=== PATIENT | female | born 1995 ===

== ENCOUNTER 2018-06-23 15:21 | Emergency (ER) | payer OTHER ==
[2018-06-23 15:39] VITALS: BP 120/74; PULSE 88; RESP 18; TEMP 98.3; O2SAT 99
--- NOTE | 2018-06-23 16:22 | ED PDOC ---
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 denies: Nausea, Vomiting, Diarrhea Alleviating Factors: None Additional Complaint(s): 23yo female c/o pelvic cramping, small vaginal bleeding and urinary frequency and dysuria ongoing since this morning. Mild L lower back pain. Denies fever, dizziness, vaginal discharge or syncope. Denies headache, rash or concern for STDs. Past Medical History Reviewed: Historical Data, Nursing Documentation, Vital Signs Vital Signs: Last Vital Signs Temp 98.3 F 06/23/18 15:36 Pulse 88 06/23/18 15:36 Resp 18 06/23/18 15:36 BP 120/74 06/23/18 15:36 Pulse Ox 99 06/23/18 15:36 - Medical History PMH: No Chronic Diseases Other PMH: - Surgical History Surgical History: No Surg Hx - Family History Family History: States: Unknown Family Hx - Social History Current smoker - smoking cessation education provided: No - Home Medications Home Medications: Ambulatory Orders Medication Instructions Recorded Cephalexin [cephalexin] 500 mg PO TID #21 cap 06/23/18 - Allergies Allergies/Adverse Reactions: Allergies Allergy/AdvReac Type Severity Reaction Status Date / Time No Known Allergies Allergy Verified 06/23/18 16:14 Review of Systems Constitutional: Negative for: Fever ENT: Negative for: Throat Pain Cardiovascular: Negative for: Chest Pain Respiratory: Negative for: Shortness of Breath Gastrointestinal: Positive for: Abdominal Pain Genitourinary Female: Positive for: Dysuria, Frequency, Vaginal Bleeding, Pelvic Pain. Negative for: Vaginal Discharge Musculoskeletal: Positive for: Back Pain. Negative for: Neck Pain Skin: Negative for: Rash Neurological: Negative for: Weakness, Numbness Psych: Negative for: Depression Physical Exam - Reviewed Nursing Documentation Reviewed: Yes Vital Signs Reviewed: Yes - Physical Exam Appears: Positive for: Well, Non-toxic, No Acute Distress Head Exam: Positive for: ATRAUMATIC, NORMAL INSPECTION, NORMOCEPHALIC Skin: Positive for: Normal Color, Warm, DRY Eye Exam: Positive for: EOMI, Normal appearance, PERRL ENT: Positive for: Normal ENT Inspection Neck: Positive for: Normal, Painless ROM Cardiovascular/Chest: Positive for: Regular Rate, Rhythm Respiratory: Positive for: CNT, Normal Breath Sounds Gastrointestinal/Abdominal: Positive for: Soft. Negative for: Tenderness, Distended, Guarding, Rebound Back: Positive for: Normal Inspection Extremity: Positive for: Normal ROM Neurologic/Psych: Positive for: Alert, Oriented. Negative for: Motor/Sensory Deficits - Laboratory Results Result Diagrams: 06/23/18 16:40 06/23/18 16:40 - ECG O2 Sat by Pulse Oximetry: 99 Medical Decision Making Medical Decision Making: upreg neg UA ++WBC and leuk est, nitrate WBC 11 chem unremarkable No CVA tenderness given dose rocephin and stable for outpt treatment. followup cultures. 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 Your provider was Rufino Sam III, DO and you were treated for VAGINAL BLEEDING. The emergency medical care you received today was directed at your acute symptoms. If you were prescribed any medication, please fill it and take as directed. It may take several days for your symptoms to resolve. Return to the Emergency Department if your symptoms worsen, do not improve, or if you have any other problems. Please contact your doctor or call one of the physicians/clinics you have been referred to that are listed on the Patient Visit Information form that is included in your discharge packet. Bring any paperwork you were given at discharge with you along with any medications you are taking to your follow up visit. Our treatment cannot replace ongoing medical care by a primary care provider outside of the emergency department. Thank you for allowing the [facility] team to be part of your care today. If you had an X-Ray or CT scan: A Radiologist will review the ED reading if any change in treatment is needed we will contact you. If you had a blood, urine, or wound culture: It will take several days for the results, if any change in treatment is needed we will contact you. If you had an STI test: It will take 48 hours for the results. Please call after 1 week if you have not heard back.Followup cultures, you may need antibiotic changed based on result Prescriptions: Cephalexin [cephalexin] 500 mg PO TID #21 cap Instructions: Urinary Tract Infections in Adults Forms: [facility] (Egyptian) Print Language: NEPALI
[2018-06-23 16:45] LABS: BASO % 0.3 % (0.0-2.0); EOS % 0.4 % (0.0-4.0); HEMOGLOBIN 12.1 g/dL (12.0-16.0); LYMPH # 2.2 K/uL (1.0-4.3); LYMPH % 19.3 % (20.0-40.0); MEAN CELL VOLUME 85.7 fl (81.0-99.0); MEAN CORPUSCULAR HGB CONC 32.6 g/dL (33.0-37.0); MEAN PLATELET VOLUME 7.3 fl (7.2-11.7); MONO # 0.7 K/uL (0.0-0.8); MONO % 6.4 % (0.0-10.0); NEUT # 8.6 K/uL (1.8-7.0); NEUT % 73.6 % (50.0-75.0); RBC 4.32 Mil/uL (3.80-5.20); RED CELL DISTRIBUTION WIDTH 15.6 % (11.5-14.5); WHITE BLOOD COUNT 11.6 K/uL (4.8-10.8)
[2018-06-23 16:55] LABS: ALB/GLOB RATIO 1.4 (1.0-2.1); ALBUMIN 4.5 g/dL (3.5-5.0); ALT/SGPT 19 U/L (9-52); AST/SGOT 25 U/L (14-36); BLOOD UREA NITROGEN 13 mg/dl (7-17); GFR AFRICAN-AMERICAN > 60; GFR NON-AFRICAN AMERICAN > 60
[2018-06-23 17:07] LABS: SQUAMOUS EPITHIAL 14 /hpf (0-5); URINE BACTERIA RARE (<OCC); URINE BILIRUBIN NEGATIVE (NEGATIVE); URINE BLOOD LARGE (NEGATIVE); URINE CLARITY TURBID (Clear); URINE COLOR AMBER (YELLOW); URINE GLUCOSE (UA) NEG (Normal); URINE LEUKOCYTE ESTERASE MOD Leu/uL (Negative); URINE PROTEIN 100 mg/dL (NEGATIVE); URINE UROBILINOGEN 0.2-1.0 mg/dL (0.2-1.0); WBC CLUMPS MANY /hpf
[2018-06-23] MEDS ORDERED: cefTRIAXone (Rocephin) 1 gm Inj ONE (18:06)
== END 2018-06-23 19:49 | disposition home or self-care (01) ==
LOC: H.ER 15:21
DX: N39.0 Urinary tract infection, site not specified (principal)
CPT/HCPCS: 80053; 81003; 81025; 85025; 87086; 87181; 96365; 96375; 99283; J0696; J1885

== ENCOUNTER 2018-07-06 01:25 | Emergency (ER) | payer OTHER ==
[2018-07-06 01:57] VITALS: RESP 16; TEMP 98.3; O2SAT 99
[2018-07-06] MEDS ORDERED: cefTRIAXone (Rocephin) 250 mg Inj IM ONE (04:52)
[2018-07-06] MEDS ORDERED: cefTRIAXone (Rocephin) 250 mg Inj ONE (05:29)
--- NOTE | 2018-07-06 05:39 | ED PDOC ---
HPI: Female Pain Time Seen by Provider: 07/06/18 01:56 Chief Complaint (Nursing): Female Genitourinary Chief Complaint (Provider): Female Genitourinary History Per: Patient History/Exam Limitations: no limitations Onset/Duration Of Symptoms: Days (x1) Additional Complaint(s): Patient is a 23 y/o female with no significant medical history, who presents to the ED complaining of dysuria and hematuria, x1 day ago in the evening. Patient reports that she was experiencing much more frequent need to urinate and noticed blood in her urine. She also reports suprapubic pain. Patient denies any vaginal bleeding, vomiting, or back pain. PMD: None Past Medical History Reviewed: Historical Data, Nursing Documentation, Vital Signs Vital Signs: Last Vital Signs Temp 98.3 F 07/06/18 01:52 Pulse 68 07/06/18 01:52 Resp 16 07/06/18 01:52 BP 122/80 07/06/18 01:52 Pulse Ox 99 07/06/18 01:52 - Medical History PMH: No Chronic Diseases - Surgical History Surgical History: No Surg Hx - Family History Family History: States: Unknown Family Hx - Home Medications Home Medications: Ambulatory Orders Medication Instructions Recorded Cephalexin [cephalexin] 500 mg PO TID #21 cap 06/23/18 Nitrofurantoin Macrocrystals 100 mg PO BID #14 cap 07/06/18 [Macrobid] - Allergies Allergies/Adverse Reactions: Allergies Allergy/AdvReac Type Severity Reaction Status Date / Time No Known Allergies Allergy Verified 07/06/18 01:52 Review of Systems ROS Statement: Except As Marked, All Systems Reviewed And Found Negative Constitutional: Negative for: Fever Gastrointestinal: Positive for: Abdominal Pain (suprapubic). Negative for: Vomiting Genitourinary Female: Positive for: Dysuria, Frequency, Hematuria. Negative for : Vaginal Discharge Musculoskeletal: Negative for: Back Pain Physical Exam - Reviewed Nursing Documentation Reviewed: Yes Vital Signs Reviewed: Yes - Physical Exam Appears: Positive for: Non-toxic, No Acute Distress Head Exam: Positive for: ATRAUMATIC, NORMOCEPHALIC Skin: Positive for: Normal Color, Warm, Dry Eye Exam: Positive for: EOMI, Normal appearance, PERRL Neck: Positive for: Normal, Painless ROM Cardiovascular/Chest: Positive for: Regular Rate, Rhythm. Negative for: Murmur Respiratory: Positive for: Normal Breath Sounds. Negative for: Respiratory Distress Gastrointestinal/Abdominal: Positive for: Tenderness (mild suprapubic) Pelvic Exam: Positive for: External Exam Normal, Other (Accounting Intern: Shameka; diffuse tenderness internally). Negative for: Active Bleeding, Discharge Back: Positive for: Normal Inspection Extremity: Positive for: Normal ROM. Negative for: Pedal Edema, Deformity Neurologic/Psych: Positive for: Alert, Oriented. Negative for: Motor/Sensory Deficits - ECG O2 Sat by Pulse Oximetry: 99 (RA) Pulse Ox Interpretation: Normal Medical Decision Making Medical Decision Making: Time: 05:07 Impression: UTI, cervicitis, PID Initial Plan: --Chlamydia/GC --Rocephin --Zithromax --Culture genital --Urine C&S Scribe Attestation: Documented by Alan Kumar acting as a scribe for Jone Loja MD. Provider Scribe Attestation: All medical record entries made by the Scribe were at my direction and personally dictated by me. I have reviewed the chart and agree that the record accurately reflects my personal performance of the history, physical exam, medical decision making, and the department course for this patient. I have also personally directed, reviewed, and agree with the discharge instructions and disposition. Disposition - Clinical Impression Clinical Impression: UTI (urinary tract infection), Cervicitis - Patient ED Disposition Is Patient to be Admitted: No Doctor Will See Patient In The: Office Counseled Patient/Family Regarding: Studies Performed, Diagnosis, Need For Followup - Disposition Referrals: [facility] [Outside] Disposition: Routine/Home Disposition Time: 06:00 Condition: GOOD Additional Instructions: ROB FAUSTIN, thank you for letting us take care of you today. Your provider was Jone Loja MD and you were treated for VAGINAL BLEEDING. The emergency medical care you received today was directed at your acute symptoms. If you were prescribed any medication, please fill it and take as directed. It may take several days for your symptoms to resolve. Return to the Emergency Department if your symptoms worsen, do not improve, or if you have any other problems. Please contact your doctor or call one of the physicians/clinics you have been referred to that are listed on the Patient Visit Information form that is included in your discharge packet. Bring any paperwork you were given at discharge with you along with any medications you are taking to your follow up visit. Our treatment cannot replace ongoing medical care by a primary care provider outside of the emergency department. Thank you for allowing the [facility] team to be part of your care today. If you had an X-Ray or CT scan: A Radiologist will review the ED reading if any change in treatment is needed we will contact you. If you had a blood, urine, or wound culture: It will take several days for the results, if any change in treatment is needed we will contact you. If you had an STI test: It will take 48 hours for the results. Please call after 1 week if you have not heard back. Prescriptions: Nitrofurantoin Macrocrystals [Macrobid] 100 mg PO BID #14 cap Instructions: Urinary Tract Infections in Adults, Sexually-Transmitted Diseases Forms: [employer] (Kosovan) Print Language: FRENCH
[2018-07-06 06:12] VITALS: BP 105/65; PULSE 56
== END 2018-07-06 06:21 | disposition home or self-care (01) ==
LOC: H.ER 01:25
DX: N39.0 Urinary tract infection, site not specified (principal); N72 Inflammatory disease of cervix uteri
CPT/HCPCS: 81025; 87086; 87491; 87591; 96372; 99283; J0696